=== PATIENT | female | born 1960 ===

== ENCOUNTER 2020-12-05 09:17 | Outpatient (CLI) | payer MEDICAID ==
--- NOTE | 2020-11-30 09:00 | NUR ---
[facility] WITH CALL BACK NUMBER AND INSTRUCTIONS
[~2020-12-05] VITALS: Ht 167.6 cm; Wt 69.0 kg
[2020-12-05] VITALS (11 sets, daily range): BP systolic 115–1223; BP diastolic 74–91; PULSE 49–67; TEMP 98
[2020-12-05] MEDS ORDERED: LYRICA200 MG PO (09:38)
[2020-12-05] MEDS ORDERED: ZESTORETIC 12.51 TA1 PO (09:39)
[2020-12-05] MEDS ORDERED: EFFEXOR XR75 MG/CAP PO (09:40)
--- NOTE | 2020-12-05 10:15 | NUR ---
pt positioned for procedure, Dr Coreas here
--- NOTE | 2020-12-05 10:35 | NUR ---
yumiko obtained and put in formulin, pt has no c/o, moved to cart
--- NOTE | 2020-12-05 15:00 | NUR ---
pt's ride is here. pt has been doing fine in [address], watching tv, eating lunch. pt denies any new sob, inspiratory pain, cough. she has mentioned some soreness at puncture site, plans to take tylenol at home if needed. Pt escorted to exit via wheelchair at this time.
== END 2020-12-05 15:00 | disposition home or self-care (01) ==
LOC: COL.RAD 09:17
DX: R91.8 Other nonspecific abnormal finding of lung field (principal)
CPT/HCPCS: 32107